=== PATIENT | male | born 1965 | race Two or more races ===

== ENCOUNTER 2022-08-28 12:29 | Emergency (ER) | payer MEDICARE, MEDICAID ==
[~2022-08-28] VITALS: Ht 175.3 cm; Wt 153.9 kg
[2022-08-28 13:57] LABS: Basophils # (auto) 0 10 ^3/uL (0-0.2); Basophils % (auto) 0.1 % (0.0-2.0); Eosinophils # (auto) 0.1 10 ^3/uL (0-0.8); Eosinophils % (auto) 1.1 % (0.0-7.0); Hematocrit 39.7 % (41.0-53.0); Hemoglobin 13.7 g/dL (13.5-17.5); Lymphocytes # (auto) 1.3 10 ^3/uL (0.4-5.4); Lymphocytes % (auto) 11.9 % (10.0-50.0); Mean Corpuscular Hemoglobin 32.4 pg (28.0-32.0); Mean Corpuscular Hgb Conc. 34.5 g/dL (32.0-36.0); Mean Corpuscular Volume 94.1 fL (80.0-100.0); Monocytes # (auto) 1.2 10 ^3/uL (0-1.3); Monocytes % (auto) 11.6 % (0.0-12.0); Neutrophils # (auto) 8.1 10 ^3/uL (1.6-8.6); Neutrophils % (auto) 75.3 % (37.0-80.0); Red Blood Cells 4.21 10^6/uL (4.5-5.90); Red Cell Distribution Width 13.4 % (11.8-14.3); White Blood Cell 10.7 10^3/uL (4.4-10.8)
[2022-08-28 14:19] LABS: Potassium 4.1 mmol/L (3.5-5.1)
[2022-08-28 14:24] LABS: Albumin 3.6 g/dL (3.4-5.0); BUN/Creatinine Ratio 17.6 (10.0-20.0); Bilirubin, Total 1.5 mg/dL (0.2-1.0); Calcium 8.2 mg/dL (8.5-10.1); Total Protein 7.4 g/dL (6.4-8.2)
[2022-08-28] MEDS ORDERED: KETOROLAC TROMETH 30 MG/ML 1ML VIAL IV ONE (15:45)
[2022-08-28] MEDS ORDERED: SODIUM CHLORIDE 0.9% 1,000 ML IV ONE (15:45)
[2022-08-28] MEDS ORDERED: MORPHINE SULFATE INJ 2 MG/ml SYRG IV ONE (19:15)
[2022-08-28] MEDS ORDERED: IOHEXOL 350 MG/ML 100ML IJ ONE ×2 (19:16→19:42)
[2022-08-28 19:26] LABS: Urine Bacteria NONE SEEN /hpf (None Seen); Urine Blood Negative /uL (Negative); Urine Specific Gravity 1.024 (1.001-1.035); Urine WBC 2 /hpf (0 - 3)
[2022-08-28] MEDS ORDERED: CEPHALEXIN 250 MG CAP PO ONE (21:30)
[2022-08-28] MEDS ORDERED: SULFAMETHOX W/TRIMETH(800/160MG) DS TAB PO ONE (21:30)
[2022-08-28] MEDS ORDERED: BACDST PO (21:31)
[2022-08-28] MEDS ORDERED: CEPH250C PO (21:31)
[2022-08-28] MEDS ORDERED: ACET1CAP14 PO (21:31)
[2022-08-28] MEDS ORDERED: IBUP1TAB4 PO (21:31)
[2022-08-28 22:31] VITALS: BP 116/69
== END 2022-08-28 22:39 | disposition home or self-care (01) ==
LOC: ER 12:29
DX: L03.116 Cellulitis of left lower limb (principal); R53.1 Weakness; M79.652 Pain in left thigh; Z98.890 Other specified postprocedural states
CPT/HCPCS: 36415; 70450; 73701; 80053; 81001; 85025; 93971; 96361; 96374; 99285; J1885; J7030; Q9967

== ENCOUNTER 2023-09-11 17:11 | Emergency (ER) | payer OTHER, MEDICAID ==
[~2023-09-11] VITALS: Ht 175.3 cm; Wt 150.0 kg
[~2023-09-11 17:11] MED LIST: ACET1CAP14 PO; BACDST PO; CEPH250C PO; IBUP1TAB4 PO
[2023-09-11 18:34] VITALS: BP 139/81; PULSE 82; RESP 18; TEMP 98; O2SAT 96
[2023-09-11] MEDS ORDERED: CYCL-839 PO (19:35)
[2023-09-11] MEDS: KETOROLAC TROMETH 60MG/2ML VIAL IM ONE (19:40)
[2023-09-11] MEDS: CYCLOBENZAPRINE HCL 10 MG TAB PO ONE (19:40)
== END 2023-09-11 19:45 | disposition home or self-care (01) ==
LOC: ER 17:11
DX: S46.912A Strain of unspecified muscle, fascia and tendon at shoulder and upper arm level, left arm, initial encounter (principal); X58.XXXA Exposure to other specified factors, initial encounter; Y93.89 Activity, other specified; Y92.89 Other specified places as the place of occurrence of the external cause; Y99.8 Other external cause status
CPT/HCPCS: 96372; 99283; J1885

== ENCOUNTER 2023-09-29 19:59 | Inpatient (IN) | payer OTHER, MEDICAID ==
[~2023-09-29] VITALS: Ht 175.3 cm; Wt 155.0 kg
[~2023-09-29 19:59] MED LIST changes: +CYCL-839 PO
[2023-09-29 20:55] LABS: Basophils # (auto) 0.1 10 ^3/uL (0-0.2); Basophils % (auto) 0.9 % (0.0-2.0); Eosinophils # (auto) 0.3 10 ^3/uL (0-0.8); Eosinophils % (auto) 4.5 % (0.0-7.0); Hematocrit 40.6 % (41.0-53.0); Hemoglobin 14.3 g/dL (13.5-17.5); Lymphocytes # (auto) 1.9 10 ^3/uL (0.4-5.4); Lymphocytes % (auto) 29.5 % (10.0-50.0); Mean Corpuscular Hemoglobin 33.6 pg (28.0-32.0); Mean Corpuscular Hgb Conc. 35.1 g/dL (32.0-36.0); Mean Corpuscular Volume 95.8 fL (80.0-100.0); Monocytes # (auto) 0.5 10 ^3/uL (0-1.3); Monocytes % (auto) 7.8 % (0.0-12.0); Neutrophils # (auto) 3.7 10 ^3/uL (1.6-8.6); Neutrophils % (auto) 57.3 % (37.0-80.0); Nucleated Red Blood Cells % 0.1 %; Red Blood Cells 4.24 10^6/uL (4.5-5.90); Red Cell Distribution Width 13.5 % (11.8-14.3); White Blood Cell 6.4 10^3/uL (4.4-10.8)
[2023-09-29 21:03] LABS: Alanine Aminotransferase 33 U/L (7-40); Albumin 4.2 g/dL (3.2-4.8); Alkaline Phosphatase 70 U/L (46-116); Anion Gap 6 (5-15); Aspartate Aminotransferase 26 U/L (13-40); BUN/Creatinine Ratio 15.3 (10.0-20.0); Bilirubin, Total 0.3 mg/dL (0.2-1.0); Blood Urea Nitrogen 13 mg/dL (9-23); Calcium 9.6 mg/dL (8.7-10.4); Carbon Dioxide 26 mmol/L (20-30); Chloride 107 mmol/L (98-107); Glucose 90 mg/dL (74-106); Potassium 4.2 mmol/L (3.5-5.1); Sodium 139 mmol/L (136-145); Total Protein 7.1 g/dL (5.7-8.2)
[2023-09-30] VITALS (8 sets, daily range): BP systolic 106–123; BP diastolic 53–75; PULSE 68–89; RESP 16–20; TEMP 97.4–98.6; O2SAT 93–96
[2023-09-30 01:03] LABS: Urine Bacteria None Seen /hpf (None Seen)
[2023-09-30 01:28] LABS: Urine Blood Negative /uL (Negative); Urine Clarity Clear (Clear); Urine Color Light-Yellow (Yellow); Urine Protein, UAD Negative (Negative); Urine Specific Gravity 1.023 (1.001-1.035); Urine Urobilinogen 3 mg/dL (Negative); Urine WBC 1 /hpf (0 - 3); Urine pH 6.5 (5.0-9.0)
[2023-09-30] MEDS ORDERED: ONDANSETRON HCL 4 MG/2 ML VIAL IV PRN (05:30)
[2023-09-30] MEDS: HYDROcodone-ACET 5/325MG TAB PO PRN (05:42)
[2023-09-30 06:11] LABS: Basophils # (auto) 0.1 10 ^3/uL (0-0.2); Eosinophils # (auto) 0.3 10 ^3/uL (0-0.8); Eosinophils % (auto) 4.6 % (0.0-7.0); Hematocrit 39.6 % (41.0-53.0); Hemoglobin 14.2 g/dL (13.5-17.5); Lymphocytes # (auto) 1.5 10 ^3/uL (0.4-5.4); Lymphocytes % (auto) 23.4 % (10.0-50.0); Mean Corpuscular Hemoglobin 33.9 pg (28.0-32.0); Mean Corpuscular Hgb Conc. 35.8 g/dL (32.0-36.0); Mean Corpuscular Volume 94.8 fL (80.0-100.0); Monocytes # (auto) 0.6 10 ^3/uL (0-1.3); Monocytes % (auto) 9.3 % (0.0-12.0); Neutrophils # (auto) 3.9 10 ^3/uL (1.6-8.6); Neutrophils % (auto) 61.7 % (37.0-80.0); Red Blood Cells 4.18 10^6/uL (4.5-5.90); Red Cell Distribution Width 13.5 % (11.8-14.3); White Blood Cell 6.3 10^3/uL (4.4-10.8)
[2023-09-30 06:15] LABS: Alanine Aminotransferase 33 U/L (7-40); Albumin 4.1 g/dL (3.2-4.8); Alkaline Phosphatase 62 U/L (46-116); Anion Gap 4 (5-15); Aspartate Aminotransferase 22 U/L (13-40); BUN/Creatinine Ratio 18.4 (10.0-20.0); Blood Urea Nitrogen 14 mg/dL (9-23); Calcium 9.2 mg/dL (8.7-10.4); Carbon Dioxide 27 mmol/L (20-30); Chloride 108 mmol/L (98-107); Glucose 92 mg/dL (74-106); Sodium 139 mmol/L (136-145)
[2023-09-30 06:16] LABS: Bilirubin, Total 0.7 mg/dL (0.2-1.0); Total Protein 6.7 g/dL (5.7-8.2)
[2023-09-30] MEDS ORDERED: NITROGLYCERIN 0.4 MG SL TAB SL PRN (07:15)
[2023-09-30] MEDS ORDERED: MORPHINE SULFATE INJ 2 MG/ml SYRG IV PRN (07:15)
[2023-09-30] MEDS: SODIUM CHLORIDE 0.9% 1,000 ML IV SCH (10:13)
[2023-09-30 13:34] LABS: Erythrocyte Sedimentation Rate 19 mm/hr (0-20)
[2023-09-30] MEDS ORDERED: IBUP-1455 PO (13:39)
[2023-09-30] MEDS ORDERED: ERGO1CAP23 PO (13:39)
[2023-09-30] MEDS ORDERED: ALBU2TAB11 IN (13:39)
[2023-09-30] MEDS: ACETAMINOPHEN 325 MG TAB PO PRN (17:43)
[2023-10-01] VITALS (10 sets, daily range): BP systolic 104–128; BP diastolic 59–77; PULSE 60–87; RESP 17–22; TEMP 96.5–98.3; O2SAT 93–97
[2023-10-01 05:38] LABS: Basophils # (auto) 0.1 10 ^3/uL (0-0.2); Basophils % (auto) 1.2 % (0.0-2.0); Eosinophils # (auto) 0.3 10 ^3/uL (0-0.8); Eosinophils % (auto) 5.5 % (0.0-7.0); Hematocrit 39.7 % (41.0-53.0); Hemoglobin 13.9 g/dL (13.5-17.5); Lymphocytes # (auto) 1.6 10 ^3/uL (0.4-5.4); Lymphocytes % (auto) 33.5 % (10.0-50.0); Mean Corpuscular Hemoglobin 33.4 pg (28.0-32.0); Mean Corpuscular Hgb Conc. 34.9 g/dL (32.0-36.0); Mean Corpuscular Volume 95.5 fL (80.0-100.0); Monocytes # (auto) 0.5 10 ^3/uL (0-1.3); Monocytes % (auto) 9.3 % (0.0-12.0); Neutrophils # (auto) 2.4 10 ^3/uL (1.6-8.6); Neutrophils % (auto) 50.5 % (37.0-80.0); Nucleated Red Blood Cells % 0.1 %; Red Blood Cells 4.16 10^6/uL (4.5-5.90); Red Cell Distribution Width 13.2 % (11.8-14.3); White Blood Cell 4.8 10^3/uL (4.4-10.8)
[2023-10-01 05:50] LABS: Alanine Aminotransferase 30 U/L (7-40); Albumin 3.7 g/dL (3.2-4.8); Alkaline Phosphatase 58 U/L (46-116); Anion Gap 5 (5-15); Aspartate Aminotransferase 21 U/L (13-40); BUN/Creatinine Ratio 17.9 (10.0-20.0); Blood Urea Nitrogen 12 mg/dL (9-23); Calcium 9.4 mg/dL (8.7-10.4); Carbon Dioxide 26 mmol/L (20-30); Chloride 108 mmol/L (98-107); Glucose 85 mg/dL (74-106); Potassium 4.1 mmol/L (3.5-5.1); Sodium 139 mmol/L (136-145)
[2023-10-01 05:51] LABS: Bilirubin, Total 0.5 mg/dL (0.2-1.0); Total Protein 6.3 g/dL (5.7-8.2)
[2023-10-01] MEDS: methylPREDNISolone SOD SUCC 125 MG/2 ML VL IV SCH (14:21)
[2023-10-02] VITALS (8 sets, daily range): BP systolic 108–117; BP diastolic 51–68; PULSE 61–96; RESP 17–18; TEMP 97.6–98.3; O2SAT 92–96
[2023-10-02 08:22] LABS: Hepatitis B Surface Antibody Negative (Negative)
[2023-10-02 08:55] LABS: Hepatitis C Antibody Negative (Negative)
[2023-10-02] MEDS: DOCUSATE SOD 100 MG CAP PO PRN (11:08)
[2023-10-03] VITALS (7 sets, daily range): BP systolic 108–145; BP diastolic 60–92; PULSE 66–86; RESP 16–20; TEMP 97.7–98; O2SAT 93–98
[2023-10-03] MEDS ORDERED: HYDR-4902 PO (13:18)
== END 2023-10-03 17:45 | disposition home or self-care (01) | DRG 552 ==
LOC: ER 19:59 → TELE 09-30 07:04 → TELE-WESTW 09-30 09:23
PROVIDERS: ADMIT Nurse Practitioner Family; ATTEND Family Medicine
PROC: 5A09357 Assistance with Respiratory Ventilation, Less than 24 Consecutive Hours, Continuous Positive Airway Pressure (ICD-10-PCS; principal; 2023-10-01)
DX: M48.02 Spinal stenosis, cervical region (principal); Z68.43 Body mass index [BMI] 50.0-59.9, adult; M47.22 Other spondylosis with radiculopathy, cervical region; M47.814 Spondylosis without myelopathy or radiculopathy, thoracic region; E66.01 Morbid (severe) obesity due to excess calories; Z87.440 Personal history of urinary (tract) infections; Z80.6 Family history of leukemia; Z80.1 Family history of malignant neoplasm of trachea, bronchus and lung; Z79.899 Other long term (current) drug therapy
CPT/HCPCS: 36415; 71045; 72125; 72128; 72141; 80053; 81001; 83036; 84484; 85025; 85652; 86706; 86803; 87081; 93005; 93306; 94660; G0378

== ENCOUNTER 2024-09-12 19:19 | Emergency (ER) | payer OTHER, MEDICAID ==
[~2024-09-12] VITALS: Ht 177.8 cm; Wt 122.7 kg
[~2024-09-12 19:19] MED LIST changes: +ALBU2TAB11 IN; +ERGO1CAP23 PO; +HYDR-4902 PO; +IBUP-1455 PO
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
[2024-09-12] MEDS: HYDROcodone-ACET 5/325MG TAB PO ONE (20:25)
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
[2024-09-12 21:25] VITALS: BP 100/69; PULSE 73; RESP 18; TEMP 98.1; O2SAT 94
== END 2024-09-12 21:40 | disposition home or self-care (01) ==
LOC: ER 19:21
DX: S46.812A Strain of other muscles, fascia and tendons at shoulder and upper arm level, left arm, initial encounter (principal); S39.012A Strain of muscle, fascia and tendon of lower back, initial encounter; S13.4XXA Sprain of ligaments of cervical spine, initial encounter; Z87.440 Personal history of urinary (tract) infections; V89.2XXA Person injured in unspecified motor-vehicle accident, traffic, initial encounter; Y93.I9 Activity, other involving external motion; Y92.488 Other paved roadways as the place of occurrence of the external cause; Y99.8 Other external cause status
CPT/HCPCS: 72100; 72125; 73030